=== PATIENT | female | born 1955 | race Caucasian/White ===

== ENCOUNTER → 2017-04-21 | Outpatient (CLI) | payer OTHER, MEDICAID ==
[~2017-04-21] MED LIST: ACET-2267 PO; ALPR1TAB72 PO; ASP81TEC PO; BISA10SU58 RC; CITA40TA19 PO; CTLP20T PO; CYCL10TA9 PO; DESV50TA PO; ENAL10TA PO; GLIP-173 PO; GLIP2.5T9 PO; GLIP5TAB13 PO; GLPZ5TCR PO; MAGN400O7 PO; MENT71OI TP; METF-380 PO; METF1000 PO; METO-310 PO; OMEP-10 PO; ONDN4T PO; OXYB5TAB9 PO; POLY17PO6 PO; POTA10TA10 PO; POTA10TA36 PO; SOLI5TAB4 PO; TRAM50TA2 PO; VENL75CA PO; VENL75TA2 PO; VNL75T PO
[2017-04-21 17:23] LABS: BILIRUBIN,URINE NEGATIVE (NEGATIVE); KETONES,URINE NEGATIVE (NEGATIVE); LEUKOCYTE ESTERASE ,URINE 3+ (NEGATIVE); NITRITE,URINE POSITIVE (NEGATIVE); PH,URINE 7 (5-9); PROTEIN,URINE 1+ (NEGATIVE); UROBILINOGEN,URINE NORMAL (NORMAL)
[2017-04-21 17:31] LABS: WBC,URINE >100 /HPF
== END ==
LOC: LABNPT 05:30
PROVIDERS: ATTEND Family Medicine
DX: R82.90 Unspecified abnormal findings in urine (principal)
CPT/HCPCS: 81000; 87077; 87088